=== PATIENT | female | born 1995 | race Caucasian/White ===

== ENCOUNTER 2018-08-11 15:38 | Emergency (ER) | payer OTHER ==
[~2018-08-11] VITALS: Ht 160 cm; Wt 73.0 kg
[2018-08-11 16:03] VITALS: BP 148/96
[2018-08-11 16:41] LABS: CLARITY,URINE CLOUDY (Clear); COLOR,URINE YELLOW (Yellow); GLUCOSE, URINE NEGATIVE (Neg); KETONES,URINE TRACE mg/dl (Neg); LEUKOCYTE ESTERASE ,URINE SMALL (Neg); NITRITES, URINE NEGATIVE (Neg); OCCULT BLOOD,URINE LARGE (Neg); PROTEIN,URINE 30 mg/dl (Neg); UA COLLECTION TYPE NON-SPECIFIED; URINE HCG NEGATIVE (NEG); UROBILINOGEN,URINE 0.2 E.U/dL (0.2-1.0)
[2018-08-11] MEDS ORDERED: SULF1TAB49 PO (16:45)
[2018-08-11] MEDS ORDERED: FLUC150T PO (16:45)
[2018-08-11 17:04] LABS: BACTERIA,URINE 2+ /HPF (Neg); RBC,URINE 50-100 /HPF (0-2); SQUAMOUS EPITHELIAL CELL,UR MANY /LPF (FEW)
[2018-08-11 17:05] LABS: WBC,URINE 50-100 /HPF (0-4)
== END 2018-08-11 16:58 | disposition home or self-care (01) ==
LOC: ER 15:38
DX: N39.0 Urinary tract infection, site not specified (principal)
CPT/HCPCS: 71046; 81001; 81025; 99284

== ENCOUNTER 2018-09-28 09:40 | Emergency (ER) | payer OTHER ==
[~2018-09-28] VITALS: Ht 157.5 cm; Wt 65.9 kg
[2018-09-28 09:59] VITALS: BP 128/79
[2018-09-28] MEDS ORDERED: triamcinolone acetonide 40mg/ml inj IM ONE (10:20)
== END 2018-09-28 10:32 | disposition home or self-care (01) ==
LOC: ER 09:40
DX: L23.7 Allergic contact dermatitis due to plants, except food (principal)
CPT/HCPCS: 96372; 99283; J3301

== ENCOUNTER 2018-11-30 14:56 | Emergency (ER) | payer OTHER ==
[~2018-11-30] VITALS: Ht 157.5 cm; Wt 68.2 kg
[2018-11-30 14:57] VITALS: BP 126/70
== END 2018-11-30 15:48 | disposition home or self-care (01) ==
LOC: ER 14:57
DX: S61.233A Puncture wound without foreign body of left middle finger without damage to nail, initial encounter (principal); W46.1XXA Contact with contaminated hypodermic needle, initial encounter; Y93.89 Activity, other specified; Y92.89 Other specified places as the place of occurrence of the external cause; Y99.9 Unspecified external cause status
CPT/HCPCS: 99281

== ENCOUNTER 2019-03-24 10:20 | Outpatient (CLI) | payer OTHER ==
[2019-03-24 11:06] LABS: BASOPHILS % (AUTO) 0.3 % (0-1); EOSINOPHILS # (AUTO) 0.1 X10'3 (0-0.9); EOSINOPHILS % (AUTO) 0.8 % (0-6); HEMATOCRIT 40.3 % (35.0-45.0); HEMOGLOBIN 13.8 g/dl (12.0-16.0); LYMPHOCYTES # (AUTO) 2.7 X10'3 (1.1-4.8); LYMPHOCYTES % (AUTO) 21.1 % (21-51); MEAN CORPUSCULAR HEMOGLOBIN 29.6 PG (27.0-31.0); MEAN CORPUSCULAR HGB CONC 34.3 g/dL (33.0-36.5); MEAN CORPUSCULAR VOLUME 86.3 FL (78-98); MEAN PLATELET VOLUME 8.4 FL (7.4-10.4); MONOCYTES # (AUTO) 0.9 X10'3 (0-0.9); MONOCYTES % (AUTO) 6.9 % (2-12); NEUTROPHILS # (AUTO) 8.9 X10'3 (1.8-7.7); NEUTROPHILS % (AUTO) 70.9 % (42-75); PLATELET COUNT 308 X10'3 (140-440); RED BLOOD COUNT 4.67 X10'6 (4.20-5.60); RED CELL DISTRIBUTION WIDTH 12.7 % (11.5-14.5); WHITE BLOOD COUNT 12.6 X10'3 (4.5-11.0)
[2019-03-24 11:13] LABS: CLARITY,URINE CLEAR (Clear); COLOR,URINE YELLOW (Yellow); GLUCOSE, URINE NEGATIVE (Neg); KETONES,URINE NEGATIVE (Neg); LEUKOCYTE ESTERASE ,URINE MODERATE (Neg); NITRITES, URINE POSITIVE (Neg); OCCULT BLOOD,URINE LARGE (Neg); PH,URINE 5.5 (4.8-8.0); PROTEIN,URINE NEGATIVE (Neg); UROBILINOGEN,URINE 0.2 E.U/dL (0.2-1.0)
[2019-03-24 11:16] LABS: UA COLLECTION TYPE CLN CATCH MIDSTREAM
[2019-03-24 11:26] LABS: SQUAMOUS EPITHELIAL CELL,UR MODERATE /LPF (FEW)
[2019-03-24 11:28] LABS: BACTERIA,URINE 4+ /HPF (Neg); RBC,URINE 0-2 /HPF (0-2); WBC CLUMPS,URINE FEW /HPF (NEGATIVE); WBC,URINE TNTC /HPF (0-4)
[2019-03-24 11:28] LABS: ALANINE AMINOTRANSFERASE 24 U/L (12-78); ALBUMIN 3.8 G/DL (3.4-5.0); ALKALINE PHOSPHATASE 61 IU/L (46-116); ANION GAP 11 (8-16); ASPARTATE AMINO TRANSFERASE 13 U/L (10-37); BILIRUBIN,TOTAL 0.5 MG/DL (0.1-1.0); BLOOD UREA NITROGEN 9 MG/DL (7-18); BUN/CREATININE RATIO 17.3 (6.6-38.0); CALCIUM 8.3 MG/DL (8.5-10.1); CHLORIDE 104 MMOL/L (99-107); CHOL/HDL RATIO 4.6 (0.00-4.99); CHOLESTEROL 164 MG/DL (0-200); CREATININE 0.52 MG/DL (0.40-0.90); GLUCOSE 82 MG/DL (70-104); HDL CHOLESTEROL 36 MG/DL (35-60); LDL CHOLESTEROL 116 MG/DL (50-100); POTASSIUM 3.9 MMOL/L (3.5-5.1); SODIUM 141 MMOL/L (135-145); TOTAL CARBON DIOXIDE 26.1 MMOL/L (24-32); TOTAL PROTEIN 7.7 G/DL (6.4-8.2); TRIGLYCERIDES 77 MG/DL (20-135); eGFR > 90 ML/MIN
[2019-03-25 05:13] LABS: VITAMIN D, 25-HYDROXY 24.1 ng/mL (30.0-100.0)
[2019-03-28 13:29] LABS: VITAMIN D, 1,25 DIHYDROXY 45.7 pg/mL (19.9-79.3)
== END 2019-03-24 23:59 | disposition home or self-care (01) ==
LOC: LAB 10:20
PROVIDERS: ATTEND Family Medicine
DX: R53.1 Weakness (principal); R53.83 Other fatigue; R10.9 Unspecified abdominal pain; E78.5 Hyperlipidemia, unspecified; Z76.89 Persons encountering health services in other specified circumstances; Z90.49 Acquired absence of other specified parts of digestive tract
CPT/HCPCS: 36415; 80053; 80061; 81001; 82306; 82652; 84439; 84443; 85025; 87077; 87088; 87186